=== PATIENT | male | born 1955 | race Caucasian/White ===

== ENCOUNTER 2023-09-29 13:03 | Observation (INO) | payer OTHER ==
[2023-09-29 13:46] LABS: #Basophils 0.1 10x3/uL (0.0-0.2); #Eosinphils 0.1 10x3/uL (0.0-0.5); #Monocytes 0.5 10x3/uL (0.0-1.1); #Neutrophils 4.6 10x3/uL (1.5-8.4); %Basophils 0.7 % (0.0-2.0); %Eosinophils 1.8 % (0.0-6.0); %Lymphocytes 28.1 % (18.0-47.0); %Monocytes 6.7 % (0.0-10.0); %Neutrophils 62.4 % (40.0-75.0); Hematocrit 37.9 % (38.8-50.0); Hemoglobin 13.2 g/dL (13.5-17.5); Mean Corpuscular HGB CONC 34.8 g/dL (32.0-36.0); Mean Corpuscular Hemoglobin 29.7 pg (27.0-33.0); Mean Corpuscular Volume 85.4 fl (81.2-95.1); Platelet Count 203 10x3/uL (150-450); RBC Distribution Width 13.2 % (11.5-14.5); Red Blood Cell (RBC) Count 4.44 10x6/uL (4.32-5.72); White Blood Cell (WBC) Count 7.3 10x3/uL (3.5-10.5)
[2023-09-29 14:08] LABS: ALT (SGPT) Less than 7 U/L (8-55); AST (SGOT) 10 U/L (5-34); Albumin 3.8 g/dL (3.4-4.8); Alkaline Phosphatase 83 U/L (40-110); Anion Gap 12 mmol/L (10-20); BUN (Urea Nitrogen) 19 mg/dL (8.4-25.7); Bilirubin, Total 1.1 mg/dL (0.2-1.2); Calc. Creatinine Clearance 0 mL/min (70-130); Calcium 8.5 mg/dL (7.8-10.44); Carbon Dioxide 20 mmol/L (23-31); Chloride 108 mmol/L (98-107); Estimated GFR 70; Globulin 2.6 g/dL (2.4-3.5); Glucose 153 mg/dL (80-115); Potassium 4.1 mmol/L (3.5-5.1); Protein, Total 6.4 g/dL (5.8-8.1); Sodium 136 mmol/L (136-145)
[2023-09-29 14:11] LABS: Troponin I Less than 0.010 ng/mL (< 0.028)
[2023-09-29] MEDS ORDERED: Meclizine HCl 25 MG TAB ONE (17:00)
[2023-09-29] MEDS ORDERED: Acetaminophen 500 MG TAB ONE (17:00)
[2023-09-29] MEDS ORDERED: Ondansetron PF 4 MG/2 ML Vial IVP PRN (19:44)
[2023-09-29] MEDS ORDERED: Dextrose 50% Abboject 50 ML SYRINGE SLOW IVP PRN (19:44)
[2023-09-29] MEDS ORDERED: Glucagon 1 MG/ML KIT IM PRN (19:44)
[2023-09-29] MEDS ORDERED: HumaLOG 300 UNITS/3 ML VIAL SC PRN (19:44)
[2023-09-29] MEDS ORDERED: Calcium Carbonate 500 MG ChewTAB PO PRN (19:44)
[2023-09-29] MEDS ORDERED: Senokot S 8.6-50 MG TAB PO PRN (19:44)
[2023-09-29] MEDS ORDERED: Acetaminophen 325 MG TAB PO PRN (19:44)
[2023-09-29] MEDS ORDERED: Dextrose 5% in Water 1,000 ML IV PRN (19:44)
[2023-09-29] MEDS ORDERED: Guaifenesin DM 100-10/5 ML UDCUP PO PRN (19:44)
[2023-09-29 20:43] LABS: Troponin I 0.012 ng/mL (< 0.028)
[2023-09-29] MEDS ORDERED: Ventolin HFA Inhaler 60 PUFF INHALER INH PRN (22:34)
[2023-09-29] MEDS ORDERED: Atorvastatin Calcium 40 MG TAB ONE (22:53)
[2023-09-29] MEDS ORDERED: Famotidine 20 MG TAB ONE (22:53)
[2023-09-29] MEDS ORDERED: Tamsulosin HCl 0.4 MG CAP ONE (22:54)
[2023-09-29] MEDS: Famotidine 20 MG TAB PO SCH (23:00)
[2023-09-29] MEDS: Atorvastatin Calcium 40 MG TAB PO SCH (23:00)
[2023-09-29] MEDS: Midodrine HCl 5 MG TAB PO SCH (23:09)
[2023-09-29] MEDS: Tamsulosin HCl 0.4 MG CAP PO SCH (23:10)
[2023-09-29 23:11] LABS: Bilirubin Neg (Negative); Blood, Urine 50 (Negative); Clarity Clear (Clear); Glucose, Urine (Dipstick) Normal (Negative); Ketone, Urine Negative (Negative); Leukocyte 500 (Negative); Nitrite Negative (Negative); Protein, Urine (Dipstick) 30 mg/dl (Neg-Trace); Specific Gravity, Urine 1.015 (1.005-1.030); Urobilinogen Normal mg/dL (Less than 2)
[2023-09-29 23:28] LABS: RBC/HPF 0-3 HPF (0-3); Squamous Epithelial 0-3 HPF (0-3); WBC/HPF 21-50 HPF (0-3)
[2023-09-29 23:29] LABS: Bacteria/HPF 1+ HPF (None Seen)
[2023-09-29 23:48] LABS: Hemoglobin A1c 7.4 % (4.0-6.0)
[2023-09-30 04:09] LABS: Anion Gap 13 mmol/L (10-20); BUN (Urea Nitrogen) 16 mg/dL (8.4-25.7); Calc. Creatinine Clearance 0 mL/min (70-130); Carbon Dioxide 21 mmol/L (23-31); Chloride 110 mmol/L (98-107); Estimated GFR 87; Glucose 107 mg/dL (80-115); Potassium 4.1 mmol/L (3.5-5.1); Sodium 140 mmol/L (136-145)
[2023-09-30 04:16] LABS: Troponin I Less than 0.010 ng/mL (< 0.028)
[2023-09-30] MEDS ORDERED: cefTRIAXone (ROCEPHIN) 1 GM VIAL ONE (05:01)
[2023-09-30] MEDS: Levothyroxine Sodium 100 MCG TAB PO SCH (05:08)
[2023-09-30] MEDS: cefTRIAXone\\ROCEPHIN 1 GM in Sodium Chloride 0.9% 100 ML IVPB SCH (05:08)
[2023-09-30 07:56] VITALS: TEMP 97.8
[2023-09-30] MEDS ORDERED: Carvedilol 3.125 MG TAB PO SCH ×3 (08:00→17:00)
[2023-09-30 09:17] VITALS: BP 148/91
[2023-09-30] MEDS ORDERED: Enoxaparin 40 MG (0.4 mL) SYRINGE ONE (09:19)
[2023-09-30] MEDS ORDERED: Clopidogrel Bisulfate 75 MG TAB ONE (09:19)
[2023-09-30] MEDS ORDERED: Aspirin Chewable 81 MG TAB ONE (09:19)
[2023-09-30] MEDS ORDERED: Famotidine 20 MG TAB ONE (09:21)
[2023-09-30] MEDS: Clopidogrel Bisulfate 75 MG TAB PO SCH (09:30)
[2023-09-30] MEDS: DULoxetine 30 MG CAP PO SCH (09:30)
[2023-09-30] MEDS: Enoxaparin 40 MG (0.4 mL) SYRINGE SC SCH (09:30)
[2023-09-30] MEDS: Aspirin 81 mg Enteric Coated Tablet PO SCH (09:30)
[2023-09-30] MEDS: Lantus 1000 UNITS/10 ML VIAL SC SCH (09:31)
[2023-09-30] MEDS: Famotidine 20 MG TAB PO SCH (09:31)
[2023-09-30] MEDS: Lisinopril 5 MG TAB PO SCH (09:32)
[2023-09-30] MEDS ORDERED: Atorvastatin Calcium 40 MG TAB PO SCH (21:00)
[2023-09-30] MEDS ORDERED: Tamsulosin HCl 0.4 MG CAP PO SCH (21:00)
== END 2023-09-30 16:00 | disposition home or self-care (01) ==
LOC: EEVIPCON 13:03 → CSHERS 13:03 → CSHERHOLD 19:44
PROVIDERS: ADMIT Student in an Organized Health Care Education/Training Program; ATTEND Nurse Practitioner Family
PROC: B246ZZZ Ultrasonography of Right and Left Heart (ICD-10-PCS; principal; 2023-09-30)
DX: R55 Syncope and collapse (principal); I10 Essential (primary) hypertension; E78.5 Hyperlipidemia, unspecified; I25.10 Atherosclerotic heart disease of native coronary artery without angina pectoris; E03.9 Hypothyroidism, unspecified; E11.42 Type 2 diabetes mellitus with diabetic polyneuropathy; G47.33 Obstructive sleep apnea (adult) (pediatric); E66.9 Obesity, unspecified; Z90.49 Acquired absence of other specified parts of digestive tract; Z88.8 Allergy status to other drugs, medicaments and biological substances; Z91.012 Allergy to eggs; Z91.014 Allergy to mammalian meats; Z95.5 Presence of coronary angioplasty implant and graft; Z79.890 Hormone replacement therapy; Z79.4 Long term (current) use of insulin; Z79.899 Other long term (current) drug therapy
CPT/HCPCS: 36415; 36416; 70450; 71045; 80048; 80053; 81001; 82533; 83036; 83735; 83880; 84443; 84484; 85025; 87077; 87086; 87186; 93005; 93306; 93880; 96372; 96374; G0378; J0696; J1650; J1815; J3490

== ENCOUNTER 2025-08-02 03:17 | Emergency (ER) | payer OTHER ==
[2025-08-02] MEDS ORDERED: Ondansetron PF 4 MG/2 ML Vial ONE (03:41)
[2025-08-02 04:09] LABS: #Basophils 0.08 10x3/uL (0.0-0.2); #Eosinophils 0.78 10x3/uL (0.0-0.5); #Monocytes 0.75 10x3/uL (0.0-1.1); #Neutrophils 7.72 10x3/uL (1.5-8.4); %Basophils 0.7 % (0.0-2.0); %Eosinophils 6.5 % (0.0-6.0); %Lymphocytes 22.1 % (18.0-47.0); %Monocytes 6.2 % (0.0-10.0); %Neutrophils 64.3 % (40.0-75.0); Hematocrit 43.4 % (38.8-50.0); Hemoglobin 14.9 g/dL (13.5-17.5); Mean Corpuscular Hemoglobin 29.9 pg (27.0-33.0); Mean Corpuscular Volume 87.0 fL (81.2-95.1); Platelet Count 215 10x3/uL (150-450); Red Blood Cell (RBC) Count 4.99 10x6/uL (4.32-5.72); White Blood Cell (WBC) Count 12.02 10x3/uL (3.5-10.5)
[2025-08-02 04:29] LABS: ALT (SGPT) 16 U/L (Less than 45); AST (SGOT) 32 U/L (11-34); Albumin 4.1 g/dL (3.1-4.5); Alkaline Phosphatase 101 U/L (40-110); Anion Gap 12 mmol/L (10-20); BUN (Urea Nitrogen) 25 mg/dL (8.4-25.7); Bilirubin, Total 0.7 mg/dL (0.3-1.2); Calc. Creatinine Clearance 0 mL/min (70-130); Calcium 9.3 mg/dL (7.8-10.44); Carbon Dioxide 23 mmol/L (23-31); Chloride 107 mmol/L (98-107); Globulin 3.5 g/dL (2.4-3.5); Glucose 164 mg/dL (80-115); Lipase 30 U/L (8-78); Potassium 5.3 mmol/L (3.5-5.1); Sodium 137 mmol/L (136-145)
[2025-08-02 05:27] LABS: Glucose, Urine (Dipstick) Normal (Negative); Leukocyte 25 (Negative); Protein, Urine (Dipstick) 15 mg/dl (Neg-Trace); Specific Gravity, Urine 1.015 (1.005-1.030)
[2025-08-02 05:43] LABS: Bacteria/HPF Rare-Few HPF (None Seen); CAUTI Indications for Culture Pelvic or flank pain; RBC/HPF 0-3 HPF (0-3); WBC/HPF 0-3 HPF (0-3)
[2025-08-02 05:44] LABS: Urine Culture Reflex No No
== END 2025-08-02 05:30 | disposition home or self-care (01) ==
LOC: CSHERS 03:17
DX: K52.9 Noninfective gastroenteritis and colitis, unspecified (principal); I10 Essential (primary) hypertension; E11.42 Type 2 diabetes mellitus with diabetic polyneuropathy; E03.9 Hypothyroidism, unspecified; I25.10 Atherosclerotic heart disease of native coronary artery without angina pectoris; E66.9 Obesity, unspecified; Z79.4 Long term (current) use of insulin; Z79.82 Long term (current) use of aspirin; Z79.899 Other long term (current) drug therapy; Z86.73 Personal history of transient ischemic attack (TIA), and cerebral infarction without residual deficits
CPT/HCPCS: 74177; 80053; 81001; 83690; 85025; 96374; 96375; J2270; J2405